=== PATIENT | female | born 1980 | race Caucasian/White ===

== ENCOUNTER 2020-09-29 12:09 | Emergency (ER) | payer OTHER, SELFPAY ==
--- NOTE | 2020-09-29 12:15 | ED.URI ---
HPI - URI/Sore Throat General Chief Complaint: Upper Respiratory Infection Stated Complaint: chest congestion/jarvis/fever/body aches/chills Time Seen by Provider: 09/29/20 12:37 Source: patient and RN notes reviewed Mode of arrival: ambulatory Limitations: no limitations History of Present Illness HPI Narrative: 40-year-old female presents with concern for 12-day history of headache, cough, sinus congestion and pressure, chills, intermittent fever, hoarse voice. 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 She reports she has been taking Tylenol and Advil Cold and Sinus with occasional mild relief of sinus congestion. Reports she has had 2 - Covid test within the course of her illness. Denies any loss of taste or smell MD elicited complaint: fever Related Data Home Medications Medication Instructions Recorded Confirmed fluoxetine 20 mg PO [facility] 09/29/20 09/29/20 zolpidem 10 mg PO [facility] 09/29/20 09/29/20 Allergies Allergy/AdvReac Type Severity Reaction Status Date / Time Cephalosporins Allergy Mild Rash Verified 09/29/20 12:31 clavulanic acid Allergy Mild Rash Verified 09/29/20 12:31 prednisone Allergy Mild RASH, Verified 09/29/20 12:31 SWOLLEN LIPS acetaminophen Allergy Unknown RASH Verified 09/29/20 12:31 Echinacea Allergy Unknown HIVES Verified 09/29/20 12:31 hydrocodone Allergy Unknown RASH Verified 09/29/20 12:31 BETALACTAMASEIN Allergy Mild Rash Uncoded 09/29/20 12:31 Review of Systems Review of Systems: Narrative: CONSTITUTIONAL: Reports malaise, chills, sweats, or fever. EYES: Denies visual changes, redness, or discharge. ENT: Reports rhinorrhea, congestion, sinus pain, otalgia. Denies sore throat. CARDIOVASCULAR: Denies chest pain, palpitations, or edema. RESPIRATORY: Reports cough. Denies dyspnea. GASTROINTESTINAL: Denies abdominal pain, nausea, vomiting, diarrhea SKIN: Denies rash or itching. MUSCULOSKELETAL: Reports myalgia. NEUROLOGIC: Reports headache. All systems reviewed & are unremarkable except as noted in HPI and below PMFSH Comments At time of signature, agree with nursing past medical, surgical, social and family history. There is no relevant family history pertinent to the presenting complaint Exam Narrative: Exam Narrative: GENERAL: Well-appearing, well-nourished, and in no acute distress. HEAD: Normocephalic EYES: PERRLA, conjunctivae clear ENT: Nares clear, turbinates edematous and erythematous, clear discharge. Mucous membranes moist. TM pearly villeda with dull light reflex bilaterally; no tragal tenderness. Oropharynx not erythematous without lesions. Tonsils not enlarged and without exudate, no drooling, no hoarseness, no trismus, uvula midline. NECK: Supple. No lymphadenopathy CHEST: Left-sided inspiratory wheeze, breath sounds equal. No rhonchi, rales, or stridor. No respiratory distress, speaks in full sentences. HEART: Regular rate and rhythm. No murmur heard. SKIN: Warm, dry, no rash. NEURO: Alert and oriented x3. PSYCH: Normal mood and affect Course Course Emergency Course: Patient is aware of diagnosis, understands and agrees to treatment plan. Anticipatory guidance given. Patient agrees to follow-up as directed and is aware of reasons to seek care at the emergency department. Portions of this record may have been created with voice recognition software Vital Signs Vital signs: Vital Signs Temperature 98.2 F 09/29/20 12:17 Pulse Rate 71 09/29/20 12:17 Respiratory Rate 16 09/29/20 12:17 Blood Pressure 114/80 09/29/20 12:17 Pulse Oximetry 100 09/29/20 12:17 Temperature 98.2 F 09/29/20 12:17 Pulse Rate 71 09/29/20 12:17 Respiratory Rate 16 09/29/20 12:17 Blood Pressure 114/80 09/29/20 12:17 Pulse Oximetry 100 09/29/20 12:17 Reviewed. MDM - URI/Sore Throat MDM Narrative Medical decision making narrative: Differential diagnosis considered: Simon virus, strep pharyngitis, allergic rh
[2020-09-29 12:17] VITALS: BP 114/80; PULSE 71; RESP 16; TEMP 36.8; O2SAT 100
== END 2020-09-29 12:58 | disposition home or self-care (01) ==
PROVIDERS: Emergency Provider Nurse Practitioner; PCP Family Medicine
DX: J32.9 Chronic sinusitis, unspecified (principal); J40 Bronchitis, not specified as acute or chronic; Z98.84 Bariatric surgery status
CPT/HCPCS: 87081; 87804; 87880; 99213; G0463

== ENCOUNTER 2020-10-04 14:32 | Emergency (ER) | payer OTHER, SELFPAY ==
--- NOTE | ~2020-10-04 | XR_ITS ---
EXAMINATION: XR chest 2V DATE: 10/04/2020 15:02 INDICATION: Cough. Sinus congestion. TECHNIQUE: PA and lateral views of the chest were obtained. COMPARISON: Chest radiograph dated 08/10/2009 FINDINGS: The lungs remain clear with no focal airspace opacities, pulmonary edema, pleural effusion or pneumot horax. The cardiomediastinal silhouette is normal. Visualized bones and soft tissues are unremarkable . IMPRESSION: 1. No acute cardiopulmonary disease. Reviewed, dictated and finalized at location A. [employer]ORATING [employer]PERVISING PHYSICIAN
[2020-10-04 14:39] VITALS: BP 124/82; PULSE 74; RESP 12; TEMP 36.8; O2SAT 100
--- NOTE | 2020-10-04 14:44 | ED.GENADULT ---
HPI - General Adult General Chief complaint: Upper Respiratory Infection Stated complaint: cough/wheezing/sinus congestion/dizzy Time Seen by Provider: 10/04/20 14:44 Source: patient Mode of arrival: ambulatory Limitations: no limitations History of Present Illness HPI narrative: 40-year-old female patient presents to the [facility] with complaints of cold symptoms. Patient states she was seen here last week and was tested for strep and flu. 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 Patient states she was given doxycycline, albuterol inhaler and some cough medicine. Patient states she is not feeling any better. Patient denies any fevers but states she continues to have a cough, some shortness of breath at times and some soreness to her chest when she coughs. Related Data Home Medications Medication Instructions Recorded Confirmed fluoxetine 20 mg PO [facility] 09/29/20 10/04/20 zolpidem 10 mg PO [facility] 09/29/20 10/04/20 Allergies Allergy/AdvReac Type Severity Reaction Status Date / Time Cephalosporins Allergy Mild Rash Verified 09/29/20 12:31 clavulanic acid Allergy Mild Rash Verified 09/29/20 12:31 prednisone Allergy Mild RASH, Verified 09/29/20 12:31 SWOLLEN LIPS acetaminophen Allergy Unknown RASH Verified 09/29/20 12:31 Echinacea Allergy Unknown HIVES Verified 09/29/20 12:31 hydrocodone Allergy Unknown RASH Verified 09/29/20 12:31 BETALACTAMASEIN Allergy Mild Rash Uncoded 09/29/20 12:31 Review of Systems Review of Systems: Narrative: CONSTITUTIONAL: Denies fever, chills, or sweats. EYES: Denies visual changes, redness, or discharge. ENT: Denies rhinorrhea, positive congestion, denies sore throat, or otalgia. CARDIOVASCULAR: Denies chest pain, palpitations, or edema. RESPIRATORY: Positive cough with dyspnea. GASTROINTESTINAL: Denies abdominal pain, nausea, vomiting, or diarrhea. GENITOURINARY: Denies dysuria or hematuria. SKIN: Denies rash or itching. MUSCULOSKELETAL: Denies back pain, joint pain, or myalgia. NEUROLOGIC: Positive headache, denies numbness, or weakness. PSYCHIATRIC: Denies anxiety or depression. [facility] Past Medical History Medical History (Updated 10/04/20 @ 15:33 by RENZO Jackson) Insomnia Surgical History Surgical History (Updated 10/04/20 @ 14:48 by RENZO Jackson) Bariatric surgery status History of tonsillectomy S/P LEEP of cervix Comments At the time of my signature I agree with nursing past medical history, surgical, social, and family history. There is no relevant family history pertinent to the presenting complaint. Exam Narrative: Exam Narrative: GENERAL: Well-appearing, well-nourished, and in no acute distress. HEAD: Normocephalic, atraumatic. EYES: PERRLA and EOMI. ENT: Nare with erythema and edema noted bilaterally, no rhinorrhea or epistaxis. Mucous membranes moist. Posterior pharynx with no erythema, tonsillectomy, exudates or lesions present. Bilateral TMs are clear no erythema or foreign bodies in the canal. NECK: Supple. No lymphadenopathy CHEST: Clear to auscultation. No respiratory distress. Patient able talk clear complete sentences. HEART: Regular rate and rhythm. No murmur heard. Normal peripheral pulses. ABDOMEN: Soft, nontender, nondistended, normal active bowel sounds. EXTREMITIES: Normal range of motion. No edema. SKIN: Warm, dry, no rash. NEURO: No focal deficits. Alert and oriented x3. Course Vital Signs Vital signs: Vital Signs Temperature 36.8 C 10/04/20 14:39 Pulse Rate 74 10/04/20 14:39 Respiratory Rate 12 10/04/20 14:39 Blood Pressure 124/82 10/04/20 14:39 Pulse Oximetry 100 10/04/20 14:39 Temperature 36.8 C 10/04/20 14:39 Pulse Rate 74 10/04/20 14:39 Respiratory Rate 12 10/04/20 14:39 Blood Pressure 124/82 10/04/20 14:39 Pulse Oximetry 100 10/04/20 14:39 Vital signs revie
== END 2020-10-04 15:43 | disposition home or self-care (01) ==
PROVIDERS: Emergency Provider Nurse Practitioner Family; PCP Family Medicine
DX: J06.9 Acute upper respiratory infection, unspecified (principal); R05 Cough; Z20.822 Contact with and (suspected) exposure to COVID-19
CPT/HCPCS: 71046; 87426; 99213; C9803; G0463

== ENCOUNTER → 2020-11-17 12:11 | Outpatient (CLI) | payer OTHER, SELFPAY ==
[2020-11-19 08:28] LABS: SARS-CoV-2 RNA PCR Negative
== END ==
PROVIDERS: PCP Family Medicine; Visit Provider Physician Assistant
DX: Z20.822 Contact with and (suspected) exposure to COVID-19 (principal)
CPT/HCPCS: C9803; U0003; U0005

== ENCOUNTER 2021-01-16 12:16 | Outpatient (CLI) | payer BC, OTHER, SELFPAY ==
--- NOTE | ~2021-01-16 | XR_ITS ---
EXAMINATION: XR abdomen/kub 1V DATE: 01/16/2021 12:47 INDICATION: Hematuria. Bilateral flank pain. TECHNIQUE: A supine view of the abdomen on 2 radiographs was obtained. COMPARISON: None. FINDINGS: There are no dilated loops of bowel. There is a staple line in the left upper quadrant. The re is a 2 mm calcification in left pelvis. There is an intrauterine device in expected position. IMPRESSION: 1. 2 mm calcification in left pelvis that may be a phlebolith or distal ureteral stone. Reviewed, dictated and finalized at location A. IMPRESSION: 1. 2 mm calcification in left pelvis that may be a phlebolith or distal ureter al stone.
== END 2021-01-16 12:17 | disposition home or self-care (01) ==
PROVIDERS: PCP Family Medicine; Visit Provider Family Medicine
DX: R31.9 Hematuria, unspecified (principal)
CPT/HCPCS: 74018

== ENCOUNTER 2022-05-10 08:37 | Outpatient (CLI) | payer BC, SELFPAY | END 2022-05-10 08:38 | disposition home or self-care (01) | PROVIDERS: PCP Family Medicine; Visit Provider Obstetrics & Gynecology | DX: N92.0 Excessive and frequent menstruation with regular cycle (principal); Z01.818 Encounter for other preprocedural examination | CPT/HCPCS: 36415; 86850; 86900; 86901 ==

== ENCOUNTER 2022-05-16 01:49 | Day surgery (SDC) | payer BC, SELFPAY ==
[2022-05-08 10:47] VITALS: BMI 26.2
--- NOTE | 2022-05-08 10:54 | PC.NURSE ---
Report to the Outpatient Waiting Room, entrance under the green pavilion located off [facility], at time 0600 on date 05/16/22. OR Time: _0730__. - You and your visitor will be asked to self-screen and do not enter if you have any COVID symptoms. - Only one visitor and NO children visitors are allowed at this time. - The patient visitor is requested to leave or wait in car when not with patient due to restrictions. - A mask is required within the hospital. Patients may have clear liquids (water, carbonated beverages, clear teas, apple juice) until 3 hours prior to surgery with a maximum of 20 ounces. - No food from midnight until time of surgery BEFORE 0430 AM - Infants may have breast milk until 4 hours before surgery, infant formula 6 hours prior to surgery. - Children will be allowed to drink immediately following surgery. If applicable, please bring a bottle or sippy cup to assist with drinking. Juice, water, soda, and popsicles are readily available. For infants on formula, please bring formula the day of surgery. Pacifiers are allowed. Take the following medications with a SIP of water the morning of surgery: ___N/A Medications to discontinue per physician Date to take last dose Please no make-up, nail maldivian, hairspray, perfume, deodorant, or body powder the day of surgery. No jewelry (including any body piercings) or valuables the day of surgery, leave them at home. Please take a shower or bath the night before, or the morning of, surgery with an antibacterial soap. Wear comfortable, loose fitting clothing. Children are encouraged to wear pajamas. - Jewelry must be removed prior to entering the operating room. Rings and piercings that are not removed may be cut off. - The hospital will not accept responsibility for valuables. - Please leave all valuables, including medications, at home the day of surgery. If you are going home after surgery, a licensed regional dedicated truck driver must drive you home. - NO public transportation without another adult. - We recommend that an adult stay with you for 24 hours following discharge. - We also recommend that you do not drive, make important decision, drink alcoholic beverages, or take any drugs that were not prescribed by your health care provider for at least 24 hours after your discharge time. For Pediatric surgeries, we recommend two adults accompany the child home (only one inside the building at this time). Follow any additional instructions given to you from your surgeon. If you or anyone in your household have experienced Covid symptoms in the past week, please notify your surgeon or the nurse liaison at the phone number below for possible testing. Telephone instructions given to _PATIENT___and asked if any additional questions and then verbalized understanding. Patient advised to call surgeon office or pre surgery nurse liaison [phone] if any additional questions.
--- NOTE | 2022-05-15 13:18 | P.PNAN_ITS ---
Anes - Initial Pre Proc Eval Procedure: Operation Date: 05/16/22 07:30 Proposed Procedures p Total Laparoscopic Hysterectomy with Bilateral Salpingectomy - Temi Keller MD Date/Time: 05/15/22 13:18 Surgeon: Temi Keller MD Pre Op Diagnosis: Menorrhagia Patient Data Age: 41 Gender: F Height: 1.55 m Weight: 63.05 kg Allergies Allergy/AdvReac Type Severity Reaction Status Date / Time pecan nut Allergy Severe Hives Verified 05/16/22 06:29 Cephalosporins Allergy Mild Rash Verified 05/16/22 06:29 clavulanic acid Allergy Mild Rash Verified 05/16/22 06:29 prednisone Allergy Mild RASH, Verified 05/16/22 06:29 SWOLLEN LIPS propylene glycol Allergy Mild Hives Verified 05/16/22 06:29 Echinacea Allergy Unknown HIVES Verified 05/16/22 06:29 hydrocodone Allergy Unknown RASH Verified 05/16/22 06:29 NSAIDS (Non-Steroidal AdvReac Unknown cannot Verified 05/16/22 06:29 Anti-Inflamma take po r/t gastric sleeve BETALACTAMASEIN Allergy Mild Rash Uncoded 05/16/22 06:29 Home Medications Medication Instructions Recorded Confirmed Type zolpidem 10 mg tablet 10 mg PO [facility] PRN Sleep 09/29/20 05/16/22 History alprazolam 0.5 mg tablet 0.5 mg PO HS PRN Anxiety 05/08/22 05/16/22 History cyclobenzaprine 10 mg tablet 10 mg PO HS PRN Neuromuscular 05/08/22 05/16/22 History Blockade tramadol 50 mg tablet 50 mg PO HS PRN Pain 05/08/22 05/16/22 History acetaminophen 500 mg tablet 1,000 mg PO TID 05/16/22 05/16/22 History Patient hx anesthesia problems: none Family hx anesthesia problems: none Results Review: All pre-operative results and documents have been reviewed as part of the pre- operative evaluation. [facility] Past Medical History Medical History (Updated 05/15/22 @ 13:20 by Brandon Johnston MD) Abnormal uterine bleeding Anxiety Back pain Insomnia Osteoarthritis Surgical History Surgical History (Updated 10/04/20 @ 14:48 by RENZO Jackson) Bariatric surgery status History of tonsillectomy S/P LEEP of cervix Social History Social History Smoking status: Never smoker Substance use type: does not use Living arrangements: with family Suellens - Evjaden Final PreProcedure Day of Procedure 05/15/22 13:18 Patient weight: overweight Heart: regular rate and rhythm Lungs: clear to auscultation and normal air movement Airway: Mallampati scale class II Neurological: alert and oriented Last oral intake: >/= 8 hours ASA classification: II Emergent: no Anesthetic plan: proceed Anesthesia type and monitoring: general ETT Results Review: All pre-operative results and documents have been reviewed as part of the pre- operative evaluation. Informed Consent: The patient's anesthetic plan and its attendant risks and benefits were discussed with the patient/family/POA. Questions were solicited and answers provided to the satisfaction of the patient/family/POA.
[2022-05-16] VITALS (13 sets, daily range): BP systolic 99–116; BP diastolic 59–78; PULSE 74–90; RESP 12–20; TEMP 36.2–37.2; O2SAT 94–100
[2022-05-16] MEDS: LACTATED RINGERS 1,000 ML 30 ML IV CONT ×2 (06:45→09:27)
[2022-05-16] MEDS: ACETAMINOPHEN 500 MG TABLET 1000 MG PO ×2 (06:59→13:20)
[2022-05-16] MEDS: KETOROLAC 15 MG/ML VIAL (*BKC) IV PUSH (07:00)
--- NOTE | 2022-05-16 07:13 | WPDHPUPDATE1 ---
History and Physical Update Update Date/Time: 05/16/22 07:13 History and Physical has been reviewed, including an updated exam of the patient. There are NO changes in the patient's condition. Risks, benefits, and alternatives have been discussed and questions answered. Patient agrees to proceed with procedure.
[2022-05-16] MEDS: ceFAZolin SODIUM 1 GM VIAL (07:29)
[2022-05-16] MEDS: ceFAZolin 2 GM/D5W 50 ML 2 GM/50 ML BAG IVPB (07:29)
--- NOTE | 2022-05-16 09:23 | W.PM.PROC2 ---
Procedure Note - Detailed Date of Procedure 05/16/22 Pre-op Diagnosis Menorrhagia Post-op Diagnosis Same Procedure Performed Total laparoscopic hysterectomy. Surgeon Temi Keller MD Anesthesia General Description of Procedure This patient was taken to the operating room. She was prepped and draped in the dorsal lithotomy position after induction of general anesthesia. The uterine manipulator and Jagdish cup were placed. This was done with a speculum and tenaculum. The speculum was placed. The cervix was grasped with a tenaculum. The stay sutures were placed at 3 and 9:00 a.m.. The stay sutures of 0 Vicryl were brought through the appropriately sized Jagdish cup. The tip of the AZRA manipulator was placed in the intrauterine cavity. The cup was slid into place around the cervix and into the fornices. It was locked into place. The sutures were then wrapped around the handle and tied under tension. A 5 mm skin incision was made in the left upper quadrant the abdomen. A 5 mm trocar was inserted into the intrauterine cavity under direct visualization of the scope. Pneumoperitoneum was achieved. A left lower quadrant 11 mm incision was made with scalpel. An 11 mm trocar was inserted into the anterior abdominal cavity under direct visualization the scope. A 5 mm infraumbilical incision was made with a scalpel and a 5 mm trocar was inserted the intra-abdominal cavity under direct visualization of the scope. Bilateral ureteral lysis was performed. This was done from the pelvic brim down to the uterine artery. This was done with careful dissection using sharp and blunt dissection. The fallopian tubes were removed bilaterally. The mesosalpinx around the fallopian tubes were cauterized transected with LigaSure cautery. This was done in a bilateral fashion from the ovary to the uterine cornua. The fallopian tube was transected at the uterine cornu and amputated. The tube was taken out the left lower quadrant trocar site. In a stepwise fashion along the lateral aspects of the uterus the round ligament and broad ligaments were cauterized transected down to the level of the uterine arteries. A bladder flap was created in the bladder was moved distally to the end of the cervix and over the Jagdish cup. The bilateral uterine arteries were cauterized and transected. Colpotomy was then performed. In a circumferential fashion the vagina was transected using unipolar cautery. The incision was made down on the Jagdish cup. The uterus and cervix were taken out through the vagina. A pneumo occluder was placed in the vagina. The vaginal cuff was closed with a 0 V lock suture in a running fashion. The pelvis was irrigated with copious amounts antibiotic irrigation. The ureters were again examined and found to be intact and flowing freely under the uterine arteries into the bladder. The bladder was intact. It was examined directly. The vagina was irrigated with Betadine solution after removal of the Pneumo occluder. The patient was taken to recovery room. She was stable condition. Sponge lap and needle counts were correct x2. Drains Yes Packing No Pathology Yes Complications No immediate complications Condition Stable Disposition Floor
[2022-05-16] MEDS: fentaNYL CITRATE INJ (*CRX) 100 MCG/2 ML VIAL 25 MCG IV PUSH ×8 (10:08→11:07)
--- NOTE | 2022-05-16 11:28 | ADMGEN ---
1122-This patient, Georgina Gandhi, was admitted to OB 2nd Floor Room 276-00. Patient/family oriented to hospital policies and general routines including ID bracelet, bed and alarms, visiting hours, pain management, procedures, bathroom and other care routines, personal items, smoking policy, room service/diet, and visiting hours. Information on how to activate the Rapid Response Team has been discussed. Patient/Family are encouraged to report perceived risks to care and to ask questions if they do not understand what they are told or what they should do.
[2022-05-16] MEDS: DEXTROSE 5%/0.45% SOD CHL 1,000 ML 125 ML IV CONT (11:40)
[2022-05-16] MEDS: KETOROLAC 30 MG/ML VIAL (*BKC) IV PUSH ×3 (12:00→23:35)
[2022-05-16] MEDS: ALPRAZolam (*CRX) 0.5 MG TABLET PO (12:05)
[2022-05-16] MEDS: oxyCODONE/ACETAMINOPHEN (*CRX) 10-325 MG TABLET 1 TAB PO ×2 (14:05→21:07)
[2022-05-16] MEDS: ONDANSETRON INJ 4 MG/2 ML VIAL IV PUSH (17:32)
[2022-05-16] MEDS: ZOLPIDEM TARTRATE (*CRX) 5 MG TABLET 10 MG PO (21:07)
[2022-05-16] MEDS: CYCLOBENZAPRINE HCL 10 MG TABLET PO (22:00)
[2022-05-17] MEDS: oxyCODONE/ACETAMINOPHEN (*CRX) 10-325 MG TABLET 1 TAB PO ×2 (03:48→08:00)
[2022-05-17 03:50] VITALS: BP 92/49; PULSE 78; RESP 16; TEMP 36.7
[2022-05-17] MEDS: KETOROLAC 30 MG/ML VIAL (*BKC) IV PUSH (05:35)
--- NOTE | 2022-05-17 07:28 | WPDANESPN ---
Anes - Prog Note Post-Op Date/Time: 05/17/22 07:28 Cardiovascular status: normal Respiratory status: normal Airway patency: baseline Mental status: baseline Post-Op hydration status: normal Vital Signs: Last Vital Signs Temp 36.7 C 05/17/22 03:50 Pulse 78 05/17/22 03:50 Resp 16 05/17/22 03:50 BP 92/49 L 05/17/22 03:50 Pulse Ox 97 05/16/22 16:00 O2 Del Method Room Air 05/16/22 16:00 O2 Flow Rate 8 05/16/22 09:55 Pain Score (VAS): 1 I/O: Intake & Output 05/16/22 05/16/22 05/17/22 15:59 23:59 07:59 Intake Total 300 1732 Output Total 40 300 Balance 260 1432 Post-procedural complaints: none Patient Feedback: Patient satisfied with anesthetic care.
--- NOTE | 2022-05-17 07:42 | PM.OBPNVD ---
OB - PN: Subj Subjective Date/time seen: 05/17/22 07:42 OB - PN A/P Time Spent With Patient Time: Total time spent is greater than 50% in coordination of care (as documented) at patient's floor/unit and/or counseling patient: Exam Const: General: healthy appearing, comfortable and no acute distress Resp: Auscultation: clear to auscultation bilaterally, no rales, no rhonchi and no wheezes Cardio: Rate: regular rate Heart sounds: no click, no murmurs and no rubs GI: Inspection: non-distended Auscultation: normal bowel sounds Extrem: General: normal to inspection, no pedal edema and no calf tenderness
[2022-05-17 08:55] VITALS: BP 101/63; PULSE 78; RESP 16; TEMP 37; O2SAT 99
== END 2022-05-17 09:45 | disposition home or self-care (01) ==
LOC: ANHSURGERY 06:10 → ANHOB2 11:16
PROVIDERS: PCP Family Medicine; Visit Provider Obstetrics & Gynecology
PROC: 0UT9FZZ Resection of Uterus, Via Natural or Artificial Opening With Percutaneous Endoscopic Assistance (ICD-10-PCS; CPT 58571; principal; 2022-05-16 07:30)
DX: N92.0 Excessive and frequent menstruation with regular cycle (principal); N71.1 Chronic inflammatory disease of uterus; F41.9 Anxiety disorder, unspecified; Z98.84 Bariatric surgery status
CPT/HCPCS: 58571; 88307; 99199; A9270; J0690; J1100; J1885; J2250; J2405; J2704; J2710; J3010; J7030; J7120

== ENCOUNTER 2023-06-09 14:27 | Outpatient (CLI) | payer OTHER, SELFPAY ==
--- NOTE | ~2023-06-09 | XR_ITS ---
XR lumbar spine 2-3V 06/09/2023 14:58 Indication: Degenerative disc disease. Procedure: 3 views lumbar spine Comparison: No prior studies for comparison. Findings: Status post anterior fusion and discectomy at L4-5. Vertebral body alignment is normal. Lele tebral body and disc heights are otherwise preserved. No evidence for spondylolisthesis. No fracture or traumatic malalignment. There is mild levocurvature of the lumbar spine centered at L3. Impression: 1: No significant abnormality of the lumbar spine status post fusion and discectomy at L4-5. Reviewed, dictated and finalized at location B. Impression: 1: No significant abnormality of the lumbar spine status post fusion and discec melba at L4-5.
== END 2023-06-09 14:28 | disposition home or self-care (01) ==
PROVIDERS: PCP Family Medicine; Visit Provider Neurological Surgery
DX: M51.36 Other intervertebral disc degeneration, lumbar region (principal)
CPT/HCPCS: 72100

== ENCOUNTER 2024-03-31 16:18 | Outpatient (CLI) | payer BC, OTHER, SELFPAY ==
--- NOTE | ~2024-03-31 | XR_ITS ---
EXAM: XR knee RT min 4V DATE: 03/31/2024 16:49 HISTORY: M25.569 - Pain in unspecified knee . COMPARISON: None available. FINDINGS: Normal mineralization. No fracture or dislocation. No lytic or blastic lesion. Joint space s are maintained. No erosion or periosteal change. Soft tissues within normal limits. Small volume socorro int effusion. IMPRESSION: No acute osseous finding in the right knee. Reviewed, dictated and finalized at location K.
== END 2024-03-31 16:19 | disposition home or self-care (01) ==
LOC: ANHIMG 16:22
PROVIDERS: PCP Family Medicine; Visit Provider Physician Assistant
DX: M25.561 Pain in right knee (principal)
CPT/HCPCS: 73564

== ENCOUNTER 2024-04-29 06:55 | Outpatient (CLI) | payer BC, SELFPAY ==
--- NOTE | ~2024-04-29 | MR_ITS ---
EXAMINATION: MR knee RT wo con DATE: 04/29/2024 07:32 INDICATION: Right knee pain. TECHNIQUE: Magnetic resonance imaging (MRI) of the right knee was performed without intravenous contr ast. Sequences included axial PD-weighted FS FSE, coronal PD-weighted FSE and PD-weighted FS FSE, sag ittal PD-weighted FSE, and sagittal T2-weighted FS FSE. COMPARISON: Right knee radiographs 03/31/2024 FINDINGS: Medial compartment: Medial meniscus is normal. There is deep cartilage fissuring of femoral condyle involving the central articular surface with mild subchondral edema-like marrow signal intensity. There is cartilage surfa ce irregularity of tibial condyle. Lateral compartment: Lateral meniscus is normal. Lateral compartment cartilage is normal. Patellofemoral compartment: There is cartilage surface irregularity of patella. Trochlear cartilage is normal. Ligaments and tendons: The anterior and posterior cruciate ligaments are normal. Medial collateral ligament is normal. There are changes of prior sprain of fibular collateral ligament characterized by thickening and increased signal intensity proximally. There is mild patellar tendinopathy. Fluid: There is a small knee joint effusion. There is trace fluid in a Washington's cyst. IMPRESSION: 1. Mild chondrosis of medial and patellofemoral compartments. 2. Small knee joint effusion. Reviewed, dictated and finalized at location A.
== END 2024-04-29 06:56 | disposition home or self-care (01) ==
PROVIDERS: PCP Family Medicine; Visit Provider Orthopaedic Surgery
DX: M25.461 Effusion, right knee (principal)
CPT/HCPCS: 73721

== ENCOUNTER 2024-07-17 09:00 | Outpatient (RCR) | payer BC, SELFPAY ==
--- NOTE | 2024-05-15 17:01 | OPREHPOC ---
Outpatient Therapy Plan of Care This is a Multidisciplinary Plan of Care that may contain components documented by all disciplines (PT, OT, and ST.) PT Problem 1 PT Problem #1 Knowledge Deficit PT Goal 1 Goal / Goal Update [place] with HEP PT Problem 2 PT Problem #2 Pain PT Goal 1 Goal / Goal Update Report no knee pain greater than 2/10 with ambulation PT Goal 2 Goal / Goal Update Ambulate independent of AD Target Visit 8 PT Problem 3 PT Problem #3 Impaired Range of Motion PT Goal 1 Goal / Goal Update Achieve terminal knee ROM to improve terminal stance of gait Target Visit 8 PT Goal 2 Goal / Goal Update Achieve 125 degrees of R knee flexion for improved functional foot clearance Target Visit 8 PT Goal 1 Goal / Goal Update Patient will demonstrate 40 degrees of R hip external rotation for improved alignment for knee tracking Target Visit 8 PT Goal 2 Goal / Goal Update Achieve R lateral hip strength to 4/5 to improve lateral hip and knee stability Target Visit 8
--- NOTE | 2024-05-15 17:01 | PTOPEVAL1 ---
Assessment and note entered by Ramos Benjamin, PT Evaluation Information Assessment Status Evaluation ICD-10 Condition Codes (PT) M25.561 Subjective Information Reports that she had back surgery approximately a year ago. She feels that she has been compensating since then just to get around. The knee issues really started mid March and she has been having a lot of trouble walking and getting into and out of her truck. Her pain is all in her knee and feels like a band around the knee. Reported Pain Level Pain Score 4: Self Report Assessment PT Clinical Summary Patient presenting with loss in gross knee mobility affecting functional gait and ADL performance. Limited tolerance for passive motion at this time. Patient will benefit from skilled therapy to address hip and knee mobility for functional return. Integration of hip and knee stretching should allow for improved patellar tracking at this time. Symptoms are consistent with patellofemoral dysfunction. Plan of Care Interventions Gait Training,Manual Therapy,Neuro Re-education, Therapeutic Activities,Therapeutic Exercise PT Services Indicated Yes Treatment Frequency and 2x/week for 8 visits Duration These treatments will address the objective and functional deficits as defined above. The patient will be advanced safely and appropriately in order for the patient to progress towards his/her prior level of function. Additional exercises will be introduced and as well as a comprehensive home exercise program upon discharge, if needed, ?to ensure carryover of functional gains achieved in the clinic. This treatment plan has been reviewed and agreement upon by the patient.
--- NOTE | 2024-06-04 09:23 | PCPTNOTE ---
Patient called & cancelled scheduled appointment this date due to falling on her knee. She has been rescheduled for next week.
--- NOTE | 2024-06-12 10:38 | OPREHPOC ---
Outpatient Therapy Plan of Care This is a Multidisciplinary Plan of Care that may contain components documented by all disciplines (PT, OT, and ST.) PT Problem 1 PT Problem #1 Knowledge Deficit PT Goal 1 Goal / Goal Update [place] with HEP Progress Met PT Problem 2 PT Problem #2 Pain PT Goal 1 Goal / Goal Update Report no knee pain greater than 2/10 with ambulation Target Visit 14 Progress Partially Met PT Goal 2 Goal / Goal Update Ambulate independent of AD Target Visit 14 Progress Not Met PT Problem 3 PT Problem #3 Impaired Range of Motion PT Goal 1 Goal / Goal Update Achieve terminal knee ROM to improve terminal stance of gait -Greatly improved. Still lacking Target Visit 8 Progress Partially Met PT Goal 2 Goal / Goal Update Achieve 125 degrees of R knee flexion for improved functional foot clearance Target Visit 8 Progress Met PT Goal 1 Goal / Goal Update Patient will demonstrate 40 degrees of R hip external rotation for improved alignment for knee tracking Target Visit 8 Progress Met PT Goal 2 Goal / Goal Update Achieve R lateral hip strength to 4/5 to improve lateral hip and knee stability Target Visit 8 Progress Not Met
--- NOTE | 2024-06-12 10:39 | PTOPPROG ---
Assessment and note entered by Ramos Benjamin, PT Evaluation Information Assessment Status Progress ICD-10 Condition Codes (PT) M25.561 Subjective Information Reports that she is having allergy test on Jun.16. If she is able, she is going to try to have an injection on when she has a follow up with Dr. Carbajal. Reports that she had a fall last week when she had a buckling episode of her knee. Not sure if she injured anything as she was already having pain. She had a little more pain in the knee and the thigh this week after last weeks fall. She feels she is seeing improvement with exercise, but agrees that she needs to be eating and drinking better due to cramps. Assessment PT Clinical Summary Patient has made excellent progress with knee ROM at this time. With improved mobility we will be shifting to knee stabilization through closed kinematic chain and functional strengthening. Patient still reflects apprehension with independent gait and functional squatting activity . Will continue to benefit f5rom skilled therapy to address functional goals. Plan of Care Interventions Gait Training,Manual Therapy,Neuro Re-education, Therapeutic Activities,Therapeutic Exercise PT Services Indicated Yes Treatment Frequency and 2x/week for 8 visits Duration These treatments will address the objective and functional deficits as defined above. The patient will be advanced safely and appropriately in order for the patient to progress towards his/her prior level of function. Additional exercises will be introduced and as well as a comprehensive home exercise program upon discharge, if needed, ?to ensure carryover of functional gains achieved in the clinic. This treatment plan has been reviewed and agreement upon by the patient.
--- NOTE | 2024-06-24 08:26 | PCPTNOTE ---
Patient called to cancel therapy this date due to illness.
--- NOTE | 2024-07-14 11:57 | PCPTNOTE ---
Patient called to cancel due to illness for therapy on 07/14/24.
--- NOTE | 2024-07-17 09:57 | OPREHPOC ---
Outpatient Therapy Plan of Care This is a Multidisciplinary Plan of Care that may contain components documented by all disciplines (PT, OT, and ST.) PT Problem 1 PT Problem #1 Knowledge Deficit PT Goal 1 Goal / Goal Update [place] with HEP Progress Met PT Problem 2 PT Problem #2 Pain PT Goal 1 Goal / Goal Update Report no knee pain greater than 2/10 with ambulation Target Visit 18 Progress Partially Met PT Goal 2 Goal / Goal Update Ambulate independent of AD -Continues to depend on SPC for distance>20 ft Target Visit 18 Progress Not Met PT Problem 3 PT Problem #3 Impaired Range of Motion PT Goal 1 Goal / Goal Update Achieve terminal knee ROM to improve terminal stance of gait -Greatly improved. Still lacking Target Visit 12 Progress Met PT Goal 2 Goal / Goal Update Achieve 125 degrees of R knee flexion for improved functional foot clearance Target Visit 8 Progress Met PT Goal 1 Goal / Goal Update Patient will demonstrate 40 degrees of R hip external rotation for improved alignment for knee tracking Target Visit 8 Progress Met PT Goal 2 Goal / Goal Update Achieve R lateral hip strength to 4/5 to improve lateral hip and knee stability -Improved but still lacking Target Visit 18 Progress Partially Met PT Goal 1 Goal / Goal Update Patient will improve R knee extension strength to 5/5 with no pain in loaded flexion/extension for squatting and sit to stand activity from care for work related transfers Target Visit 18
--- NOTE | 2024-07-17 09:57 | PTOPPROG ---
Assessment and note entered by Ramos Benjamin, PT Evaluation Information Assessment Status Progress ICD-10 Condition Codes (PT) M25.561 Subjective Information Reports that she has been pushing herself at home since she had the steroid injection. Feels she has had improvement but still painful. Not popping nearly as much as it was. She has been using a cane for ambulation to help unload the knee. was in a accident at work and is currently off. She is needing to get back to work. Assessment PT Clinical Summary Patient has seen great ROM progress with full functional motion noted. Knee strength greatly improved since injection but still shows some lateral weakness in hip and gait dependence on single point cane for distance. Majority of her current issues are with ambulation after prolonged sitting and weight bearing loading activity on the knee. Continues to show room for improvement with intermediate goal working toward independent and pain free ambulation. We are heading in the right direction with intermediate goals. Plan of Care Interventions Gait Training,Manual Therapy,Neuro Re-education, Therapeutic Activities,Therapeutic Exercise PT Services Indicated Yes Treatment Frequency and 1-2x/week for 6 visits Duration These treatments will address the objective and functional deficits as defined above. The patient will be advanced safely and appropriately in order for the patient to progress towards his/her prior level of function. Additional exercises will be introduced and as well as a comprehensive home exercise program upon discharge, if needed, ?to ensure carryover of functional gains achieved in the clinic. This treatment plan has been reviewed and agreement upon by the patient.
--- NOTE | 2024-07-28 17:22 | PTOPDC ---
Assessment and note entered by Ramos Benjamin, PT Evaluation Information Assessment Status Discharge - Pt Not Present ICD-10 Condition Codes (PT) M25.561 Subjective Information Patient called to cancel remaining appointments to to work conflict. Patient unable to make it to therapy. Will continue with HEP. Assessment PT Clinical Summary Patient to be discharged to HEP at this time per request for return to work. Plan of Care PT Services Indicated See last progress note for discharge status.
== END 2024-08-03 10:37 | disposition home or self-care (01) ==
LOC: ANHGOSHPT 09:00
PROVIDERS: PCP Family Medicine; Visit Provider Orthopaedic Surgery
DX: M25.561 Pain in right knee (principal)
CPT/HCPCS: 97014; 97016; 97110; 97140; 97161; 97530; G0283

== ENCOUNTER 2024-12-04 08:47 | Outpatient (CLI) | payer BC, SELFPAY ==
--- NOTE | ~2024-12-04 | CT_ITS ---
CT sinus wo con Ordering provider: Bernie Quigley PA-C History: . Chronic sinusitis, unspecified . Comparison: None. Technique: Thin slice Scans CT of the paranasal sinuses was performed with coronal and sagittal refor matted images. No IV contrast. . Automated exposure control and iterative reconstruction technique w ere employed. The dose-length product was 410.46 mGy-cm. Findings: NASAL SEPTUM: Very mild right nasal septal deviation. OSTEOMEATAL UNITS: Bilaterally patent. NASAL TURBINATES AND NASOPHARYNX: Normal. PARANASAL SINUSES: Well aerated. VISUALIZED MASTOIDS: Normal as visualized. BONES: Normal. SUPERFICIAL SOFT TISSUES/VISUALIZED BRAIN PARENCHYMA: Normal. IMPRESSION: No significant abnormality. Reviewed, dictated and finalized at location A. IMPRESSION: No significant abnormality.
--- NOTE | ~2024-12-04 | XR_ITS ---
Clinical Indication: Shortness of breath PA and lateral views of the chest: Comparison: 10/04/2020 Findings: The lungs are clear, without evidence of focal consolidation or pleural effusion. Cardiome diastinal silhouette is within normal limits. Bones and soft tissues are unremarkable. Impression: Normal chest. Reviewed, dictated and finalized at location . Impression: Normal chest.
== END 2024-12-04 08:48 | disposition home or self-care (01) ==
LOC: GOSHIMG 08:48
PROVIDERS: PCP Family Medicine
DX: J32.9 Chronic sinusitis, unspecified (principal); R06.02 Shortness of breath
CPT/HCPCS: 70486; 71046